=== PATIENT | male | born 1980 | race Caucasian/White ===

== ENCOUNTER 2018-02-02 18:15 | Emergency (ER) | payer OTHER ==
[~2018-02-02] VITALS: Ht 190.5 cm; Wt 96.0 kg
[2018-02-02 18:21] VITALS: BP 132/81
[2018-02-02] MEDS ORDERED: METHOCARBAMOL 750 MG TABLET PO ONE (19:00)
[2018-02-02] MEDS ORDERED: SODIUM CHLORIDE FLUSH 10ML SYR IVF ONE (19:00)
[2018-02-02] MEDS ORDERED: METHOCARBAMOL 750 MG TABLET ONE (19:37)
[2018-02-02] MEDS ORDERED: OMNIPAQUE 350 MG/ML, 100ML BOTTLE ONE (19:53)
== END 2018-02-02 20:58 | disposition home or self-care (01) ==
LOC: ED 20:52
DX: S16.1XXA Strain of muscle, fascia and tendon at neck level, initial encounter (principal); S39.012A Strain of muscle, fascia and tendon of lower back, initial encounter; M62.830 Muscle spasm of back; M79.81 Nontraumatic hematoma of soft tissue; G89.11 Acute pain due to trauma; R10.13 Epigastric pain; V59.49XA Driver of pick-up truck or van injured in collision with other motor vehicles in traffic accident, initial encounter; Y93.89 Activity, other specified; Y99.8 Other external cause status; Y92.410 Unspecified street and highway as the place of occurrence of the external cause
CPT/HCPCS: 72072; 72110; 72125; 74177; 99284; Q9967

== ENCOUNTER 2018-02-07 13:24 | Emergency (ER) | payer SELFPAY ==
[~2018-02-07] VITALS: Ht 190.5 cm; Wt 95.5 kg
[2018-02-07 15:32] VITALS: BP 132/70
== END 2018-02-07 16:54 | disposition home or self-care (01) ==
LOC: ED 16:11
DX: S22.059A Unspecified fracture of T5-T6 vertebra, initial encounter for closed fracture (principal); X50.0XXA Overexertion from strenuous movement or load, initial encounter; Y93.89 Activity, other specified; Y92.69 Other specified industrial and construction area as the place of occurrence of the external cause; Y99.8 Other external cause status
CPT/HCPCS: 72128; 99284